=== PATIENT | male | born 1985 | race Caucasian/White ===

== ENCOUNTER 2017-11-28 16:56 | Emergency (ER) | payer OTHER ==
--- NOTE | 2017-11-28 17:01 | PDOC ---
Rapid Medical Evaluation Time Seen by Provider: 11/28/17 17:01 Medical Evaluation: Allergies Allergy/AdvReac Type Severity Reaction Status Date / Time No Known Allergies Allergy Verified 11/28/17 16:59 11/28/17 17:01 Healthy 32 year old male with intermittent, dull, left-sided chest pain since last night. Pain started while at rest. No SOB, nausea, diaphoresis, or any other associated symptoms. No recent travel, surgeries, history of VTE. Alert, oriented, no distress. RRR, S1/S2. Lungs CTAB. No active chest pain. V/s unremarkable. -EKG -CXR -To FT for further eval
[2017-11-28 17:05] VITALS: BP 139/79; PULSE 74; TEMP 98.4; BMI 24.4
--- NOTE | 2017-11-28 17:54 | PDOC ---
History of Present Illness - General Chief Complaint: Chest Pain Stated Complaint: CHEST PAIN Time Seen by Provider: 11/28/17 17:01 - History of Present Illness Initial Comments: 11/28/17 17:53 CHIEF COMPLAINT: chest pain HISTORY OF PRESENT ILLNESS: 32 yo M with no PMH presents to fast track with with intermittent, midsternal to left sided chest pain last night, now resolved. 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 Patient denies any recent travel, surgeries, use of any hormones. Patient does report "eating something really spicy" last night as well as drinking coffee since he works over night. Patient denies any chest pain at this time. PAST MEDICAL HISTORY: Denies past medical history FAMILY HISTORY: Denies SOCIAL HISTORY: Denies tobacco, alcohol, illicit drug use. SURGICAL HISTORY: Denies ALLERGIES: No known drug allergies REVIEW OF SYSTEMS General/Constitutional: Denies fever or chills. Denies weakness. Cardiovascular: Chest pain, denies shortness of breath. Respiratory: Denies cough, wheezing, or hemoptysis. Gastrointestinal: Denies nausea, vomiting, diarrhea. Musculoskeletal: Denies joint or muscle swelling or pain. Denies neck or back pain. Neurologic: Denies headache, vertigo, loss of consciousness, or loss of sensation. PHYSICAL EXAM General Appearance: Well-appearing, appropriately dressed. No apparent distress. HEENT: EOMI, PERRLA. No conjunctival pallor. No photophobia, scleral icterus. Neck: Supple. Trachea midline. No tenderness, rigidity, carotid bruit, stridor , lymphadenopathy, or thyromegaly. Respiratory/Chest: Lungs CTAB. Cardiovascular: RRR. S1, S2. Musculoskeletal/Extremities: Normal inspection. FROM of all extremities, normal capillary refill. Pelvis Stable. No CVA tenderness. No tenderness to extremities, pedal edema, swelling, erythema or deformity. Integumentary: Appropriate color, dry, warm. 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 Fully oriented, alert. Appropriate mood/affect. Motor strength 5/5. No appreciable EOM palsy, facial droop or sensory deficit. Past History - Past Medical History Allergies/Adverse Reactions: Allergies Allergy/AdvReac Type Severity Reaction Status Date / Time No Known Allergies Allergy Verified 11/28/17 16:59 Home Medications: Ambulatory Orders NK [No Known Home Medication] 11/28/17 COPD: No - Suicide/Smoking/Psychosocial Hx Smoking History: Never smoked Have you smoked in the past 12 months: No Information on smoking cessation initiated: No Hx Alcohol Use: No Drug/Substance Use Hx: No Substance Use Type: None *Physical Exam - Vital Signs Last Vital Signs Temp Pulse Resp BP Pulse Ox 98.4 F 74 20 139/79 100 11/28/17 16:59 11/28/17 16:59 11/28/17 16:59 11/28/17 16:59 11/28/17 16:59 Medical Decision Making - Medical Decision Making 11/28/17 18:36 32 yo M with no PMH presents to fast track with with intermittent, midsternal to left sided chest pain last night, now resolved. EKG - NSR CXR unremarkable. Exam grossly unremarkable and patient at this time reports that he feels "fine. " Likely GERD symptoms overnight vs chest pain of cardiac etiology. 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 *DC/Admit/Observation/Transfer Diagnosis at time of Disposition: Atypical chest pain - Discharge Dispostion Disposition: HOME Condition at time of disposition: Stable Admit: No - Referrals Referrals: Myron Gore MD [Staff Physician] - Melissa Villatoro MD [Staff Physician] - - Patient Instructions Printed Discharge Instructions: DI for Atypical Chest Pain Additional Instructions: Please follow up with your primary care physician and tire fabricator if your symptoms return. If you develop any shortness of breath, sudden, "crushing" chest pain, swelling to any of your extremities, headache, or any new or worsening symptoms, please return to the ER. - Post Discharge Activity
--- NOTE | 2017-11-29 11:29 | EKG ---
Test Reason : Blood Pressure : / mmHG Vent. Rate : 072 BPM Atrial Rate : 072 BPM P-R Int : 172 ms QRS Dur : 092 ms QT Int : 362 ms P-R-T Axes : 035 072 018 degrees QTc Int : 396 ms NORMAL SINUS RHYTHM NORMAL ECG NO PREVIOUS ECGS AVAILABLE Confirmed by DANTE JANE MD ([id number]) on 11/29/2017 11:28:59 AM Referred By: Confirmed By:DANTE JANE MD
== END 2017-11-28 18:39 | disposition home or self-care (01) ==
LOC: JERFT 16:56
DX: R07.89 Other chest pain (principal)
CPT/HCPCS: 71046-TC-FY; 93005; 93010; 99281-25